=== PATIENT | female | born 1995 | race American Indian/Alaskan Native ===

== ENCOUNTER 2016-09-02 02:30 | Inpatient (IN) | payer OTHER, MEDICAID ==
[2016-09-02] MEDS ORDERED: Lidocaine 1% 30 ML SDV INJECT PRN (03:12)
[2016-09-02] MEDS ORDERED: Sodium Chloride 0.9% 10 ML Syringe FLUSH PRN ×2 (03:12→12:52)
[2016-09-02] MEDS ORDERED: Acetaminophen 325 MG Tab PO PRN ×2 (03:12→12:52)
[2016-09-02] MEDS ORDERED: Lactated Ringers 500 ML IV ONE (03:12)
[2016-09-02] MEDS ORDERED: Ondansetron 4 MG/2 ML SDV IV PRN (03:12)
[2016-09-02] MEDS ORDERED: Methylergonovine 0.2 MG/1 ML Amp IM PRN (03:12)
[2016-09-02] MEDS ORDERED: Penicillin G Potassium 5 MILLUNITS in Sodium Chloride 0.9% 100 ML IV ONE (03:12)
[2016-09-02] MEDS ORDERED: Misoprostol 400 MCG (4 X 100 MCG TAB) RECTAL PRN ×2 (03:12→12:52)
[2016-09-02] MEDS ORDERED: Carboprost Tromethamine 250 MCG/1 ML Amp IM PRN ×2 (03:12→12:52)
[2016-09-02] MEDS ORDERED: Nalbuphine 10 MG/1 ML Vial IM PRN (03:12)
[2016-09-02] MEDS ORDERED: Oxytocin/Normal Saline 30 UNIT/500 ML BAG IV SCH (03:15)
[2016-09-02] MEDS: Lactated Ringers 1,000 ML IV SCH ×2 (03:41→07:48)
[2016-09-02] MEDS: Penicillin G Potassium 3 MILLUNITS in Sodium Chloride 0.9% 100 ML IV SCH ×3 (07:49→16:42)
[2016-09-02] MEDS: fentaNYL 100 MCG/2 ML SDV IVPUSH PRN ×2 (09:47→10:59)
--- NOTE | 2016-09-02 10:19 | HP ---
CHIEF COMPLAINT: Increased force and frequency of contractions HISTORY OF PRESENT ILLNESS: A 21-year-old, 1, para 0 with a working due date of 09/09/2016 set by last menstrual period and confirmed with 9-week ultrasound, presents at 39 and 0/7th weeks gestation in stage I active labor. Reports contractions started about 11:00 p.m., last night and progressively got stronger and closer together, so, she came into the hospital. On admission, she was noted to be 4 cm dilated, and admitted for labor. She had spontaneous rupture of membranes at 04:12 a.m., with light meconium-stained fluid. movement has been reported to be good. She denies any symptoms of preeclampsia. Denies any other new problems or concerns since her last care visit. She prefers to try to manage labor without any pain medications and wants to be up and moving as able. OBSTETRICAL HISTORY: Last menstrual period 12/04/2015, giving a working due date of 09/09/2016. This is a planned and she was tracking her periods. Menarche at age 11 with menses every 30 days and 3 or 4 days of flow. She had a 7-kpuj-4-day quick look ultrasound in the office and also a 19-week-5- day anatomy screen showing the baby to be head down, posterior placenta, and gender male. Her blood type is O positive. She is antibody screen negative. Rubella negative. RPR nonreactive. Urine culture was negative at 2 days of growth. Hepatitis B negative. HIV negative. Gonorrhea and chlamydia negative. TSH normal at 1.37. Hepatitis C negative. Wet prep was positive for fungal elements, and she was treated with nmvj-zwy-rxwmnys vaginal yeast cream. Glucose tolerance test normal of 116. Group B strep is positive. She had a urinary tract infection in the first trimester, treated with 4 days of Keflex, found to be E. coli resistant to most of the antibiotics on culture, and then later on, she had a second urinary tract infection, however, the culture was negative and the antibiotic was discontinued. Plan was to consult Infectious Disease if she continued to have any bladder infections to decide on appropriate prophylaxis, however that did not become necessary. PAST MEDICAL HISTORY: Depression with ADHD and ODD. Denies any history however being diagnosed with depression. History of ear piercing's. No IV drug use, or blood transfusions. History of chickenpox as a child. History of lower extremity pain. 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 Menarche at age 11. Sebaceous cyst behind left ear. Tattoo. Recurrent urinary tract infections and follows with Urology and previous common warts. PAST SURGICAL HISTORY: [place] teeth extraction. FAMILY HISTORY: Mother is healthy without known diseases. Father is unknown to the patient, and his family is also unknown to the patient. She has 2 sisters and 1 brother all in good health. She has a cousin with diabetes on the mother's side of the family. She has other family members with cancer on both sides of the family reported to be alcohol and tobacco related. Paternal grandparents are unknown. Maternal grandmother has diabetes. Maternal grandfather has cancer of uncertain primary. Maternal uncle has fathered a set of twins. No family history of any alcohol syndrome or unpreventable defects. No cystic fibrosis, seizures, or bleeding problems, however, she does report her mother had hemorrhage with her last of 6 deliveries, but did not know why. No clotting disorders or anesthesia problems. SOCIAL HISTORY: The patient is and is in a long-term relationship. She works in [employer]. She has never smoked. She has not had any alcohol exposure during this . She in November of 2015. is Emeterio Treviño and he works in construction and is reportedly healthy. His parents are reportedly healthy and he has aunts who are twins. They have 2 dogs and 2 cats. MEDICATIONS: vitamin 1 daily. REVIEW OF SYSTEMS: No headaches, blurry vision, chest pain, shortness of breath. Increased abnormal swelling. No vaginal bleeding or leakage of fluid prior to presentation to the hospital. movement has been good. PHYSICAL EXAMINATION: General: This is a healthy, well-appearing 21-year-old female, who appears her stated age. More comfortable than expected for being in active labor. Vital Signs: Temperature is 98.0, pulse is 84, blood pressure is 135/74, O2 saturations 97% on room air. HEENT: Unremarkable. Neck: Supple without adenopathy. Heart: Regular without murmur. Lungs: Clear to auscultation bilaterally. Abdomen: Soft, nontender. Gravid uterus with appropriate fundal height. heart tones tracing at 135 beats per minute at baseline. Moderate hrio-os-pwiq variability. Accelerations noted. [place] showing contractions every 4 minutes with some movement artifact. Cervix is 5+ cm dilated, 100% effaced, 0 station. Extremities: Trace edema. No erythema or tenderness noted. LABORATORY DATA: Admission hemoglobin of 12.5, platelets 270. ASSESSMENT: 1. A 39-0/7th weeks intrauterine by last menstrual. 2. 1, para 0. 3. Rubella nonimmune. 4. Group B strep positive. 5. Blood type O positive. 6. History of urinary tract infections in the first trimester. PLAN: Continue expectant labor management at this time if patient is tolerating things well. If her contractions continue to seem a little bit more spaced out, we may need to initiate some Pitocin. However, we will give her a little bit of time for her body to naturally progress in labor. We will continue with antibiotic prophylaxis with penicillin and limit vaginal exams as best as we can. [facility] /[id number] CHRIS
[2016-09-02] MEDS ORDERED: Zolpidem 5 MG Tab PO PRN (12:52)
[2016-09-02] MEDS ORDERED: Simethicone 80 MG Tab.Chew PO PRN (12:52)
[2016-09-02] MEDS ORDERED: Benzocaine/Menthol 20%-0.5% Spray 56 GM Canister TOP PRN (12:52)
[2016-09-02] MEDS ORDERED: Oxytocin 10 Units/1 ML SDV IM PRN (12:52)
[2016-09-02] MEDS ORDERED: Measles, Mumps & Rubella Vaccine 0.5 ML SDV SUBCUT ONE (12:52)
[2016-09-02] MEDS: Ibuprofen 800 MG Tab PO PRN (16:35)
[2016-09-02] MEDS: Docusate Sodium 100 MG Cap PO PRN (20:52)
--- NOTE | 2016-09-03 02:14 | DEL ---
DATE: 09/02/2016 PREPROCEDURE DIAGNOSES: 1. A 39-0/7 weeks' intrauterine . 2. 1, para 0. 3. Blood type O positive. 4. Rubella nonimmune. 5. Group B Streptococcus positive. 6. History of urinary tract infections in the first trimester. 7. Lightly stained meconium fluid. POSTPROCEDURE DIAGNOSES: 1. A 39-0/7 weeks' intrauterine . 2. 1, para 1. 3. Blood type O positive. 4. Rubella nonimmune. 5. Group B Streptococcus positive. 6. History of urinary tract infections in the first trimester. 7. Lightly stained meconium fluid. 8. Status post spontaneous vaginal delivery with first-degree laceration repair. BRIEF HISTORY: A 21-year-old female, presented to the hospital in stage I labor, which progressed nicely and she spontaneously ruptured about 10 hours prior to delivery with meconium fluid noted. See admission history and physical for full details. No specific problems. PROCEDURE IN DETAIL: In the dorsal lithotomy position, delivered a viable male over intact perineum after pushing for approximately an hour. 's mouth and nose were bulb suctioned and baby was dried and stimulated and placed on mother's abdomen. Three-vessel umbilical cord was doubly clamped and then cut. Cord blood sample was then obtained. Placenta was then delivered by gentle cord traction and concomitant uterine massage after approximately 5 minutes. She did also have some brisk bleeding after the placenta was delivered, which was addressed with bimanual massage and increasing the rate of the Pitocin. Once that was controlled, Pitocin rate was decreased. A first- degree laceration was evaluated and although not bleeding, the edges were poorly approximated, so 2 simple interrupted sutures with 3-0 Vicryl were placed under 1% lidocaine without epinephrine with good skin reapproximation noted. The patient tolerated procedure well. ESTIMATED BLOOD LOSS: 300 mL. COMPLICATIONS: None. DISPOSITION: Mother and baby are in the room at this time and doing well. [facility] /[id number]
[2016-09-03] MEDS: Prenatal Multivitamin with Calcium/Folic Acid/Iron Tab PO SCH (09:36)
[2016-09-03] MEDS: Ibuprofen 800 MG Tab PO PRN ×2 (09:36→21:46)
[2016-09-03] MEDS: Docusate Sodium 100 MG Cap PO PRN (09:37)
--- NOTE | 2016-09-03 16:25 | PN ---
DATE: 09/03/2016 day #1. SUBJECTIVE: A 21-year-old, 1, now para 1, status post spontaneous vaginal delivery. Reports that she is doing well. Reports the bleeding is minimal. No foul-smelling, drainage, or discharge. No chest pain or shortness of breath. seems to be going well. Denies any other acute concerns or complaints. No symptoms of preeclampsia. Looking forward to discharge tomorrow. OBJECTIVE: Vital Signs: Temperature is 98.2, pulse of 71, blood pressure 90/53, respiratory rate of 16, O2 saturations 100% on room air. Heart: Regular without obvious murmur. Lungs: Clear to auscultation bilaterally. Abdomen: Soft. Uterus is firm and below the umbilicus. She does have some mild bloating noted. Extremities: Trace edema. No erythema or tenderness noted. LABORATORY DATA: Admission hemoglobin of 12.5, today's hemoglobin is 11.8, platelets are stable. ASSESSMENT: 1. 1, now para 1, status post uncomplicated vaginal delivery at 39 weeks' gestation. 2. Blood type O positive. 3. Rubella nonimmune and she will receive her MMR vaccine. 4. Group B strep positive, was treated during labor. 5. History of urinary tract infections recurrent, currently asymptomatic. PLAN: Continue routine post vaginal delivery cares. Anticipating discharge home tomorrow. Her questions have been answered. [facility] /[id number]
[2016-09-04] MEDS: Prenatal Multivitamin with Calcium/Folic Acid/Iron Tab PO SCH (09:00)
[2016-09-04 09:35] VITALS: BP 106/54
--- NOTE | 2016-10-16 06:59 | DISCH ---
ADMITTING DIAGNOSES: 1. A 39-0/7th weeks' gestation by last menstrual period. 2. 1, para 0. 3. Blood type O positive. 4. Rubella immune. 5. Group B Streptococcus positive. 6. History of urinary tract infections in the first trimester. 7. Light stained meconium fluid. DISCHARGE DIAGNOSES: 1. A 39-0/7th weeks' gestation by last menstrual period. 2. 1, para 0. 3. Blood type O positive. 4. Rubella immune. 5. Group B Streptococcus positive. 6. History of urinary tract infections in the first trimester. 7. Light stained meconium fluid. 8. Status post spontaneous vaginal delivery with first-degree laceration repair. BRIEF HISTORY: A 21-year-old female, admitted to the hospital in stage I labor, which progressed nicely and spontaneously ruptured about 10 hours prior to delivery with meconium fluid noted. See admission history and physical for full details. Labor was without complications. Delivery was a spontaneous vaginal delivery without complications. Baby is a term male with scores of 8 and 9, weight 3325 g. She had about 14 hours of stage I, and 1 hour of pushing, with only 5 minutes for delivery of the placenta. Bleeding was well controlled. HOSPITAL COURSE: Hospital course is good. She has been ambulating, tolerating regular diet, meeting discharge criteria. Voiding and stooling without complications. Denies any symptoms of severe anemia or preeclampsia, her baby and that is going well. LABORATORY DATA: Admission hemoglobin was 12.5, discharge hemoglobin is only down to 11.8. DISCHARGE CONDITION: Good. PHYSICAL EXAMINATION: Vital Signs: Temperature is 97.9, pulse of 74, blood pressure 114/54, respiratory rate of 16, and O2 saturations of 97% on room air. Heart: Regular without obvious murmur. Lungs: Clear bilaterally. Abdomen: Soft without masses and uterus is below the umbilicus. Extremities: Trace edema. No erythema or tenderness noted. DISPOSITION: Home with family. DISCHARGE MEDICATIONS: OTC ibuprofen and Tylenol as needed for pain. Recommended: 1. Iron 325 mg twice daily. 2. Colace 100 mg twice daily. 3. vitamin once daily. FOLLOWUP: Needs to be seen in the clinic in 6 weeks for routine exam. DISCHARGE INSTRUCTIONS: Routine post-vaginal delivery instructions provided including returning if she has any increased vaginal drainage or discharge that is of concern, any fever, increased pelvic pain, or other concerns arise. Her questions were answered. [facility] /[id number]
== END 2016-09-04 10:55 | disposition home or self-care (01) | DRG 775 ==
LOC: DL.OBCHECK 02:30 → DL.OB 03:05 → UNDOADMOB 03:05 → DL.OB 03:12 → OBSVTOIN 13:08 → DL.OB 13:08
PROVIDERS: ADMIT Family Medicine; ATTEND Family Medicine
PROC: 10E0XZZ Delivery of Products of Conception, External Approach (ICD-10-PCS; principal; 2016-09-02)
PROC: 0HQ9XZZ Repair Perineum Skin, External Approach (ICD-10-PCS; principal; 2016-09-02)
DX: O77.0 Labor and delivery complicated by meconium in amniotic fluid (principal); O23.91 Unspecified genitourinary tract infection in pregnancy, first trimester; O99.824 Streptococcus B carrier state complicating childbirth; O70.0 First degree perineal laceration during delivery; Z3A.39 39 weeks gestation of pregnancy; Z37.0 Single live birth; B96.20 Unspecified Escherichia coli [E. coli] as the cause of diseases classified elsewhere; O99.820 Streptococcus B carrier state complicating pregnancy; Z16.30 Resistance to unspecified antimicrobial drugs
CPT/HCPCS: 36415; 59025; 85027; 90707; A9270-GY; J2540; J2590; J3010; J7050; J7120

== ENCOUNTER 2017-10-06 04:20 | Inpatient (IN) | payer BC ==
[2017-10-06] MEDS ORDERED: Oxytocin 10 Units/1 ML SDV IM PRN (05:32)
[2017-10-06] MEDS ORDERED: Benzocaine/Menthol 20%-0.5% Spray 56 GM Canister TOP PRN (05:32)
[2017-10-06] MEDS ORDERED: Sodium Chloride 0.9% 10 ML Syringe FLUSH PRN (05:32)
[2017-10-06] MEDS ORDERED: Simethicone 80 MG Tab.Chew PO PRN (05:32)
[2017-10-06] MEDS ORDERED: Famotidine 20 MG Tab PO PRN (05:32)
[2017-10-06] MEDS ORDERED: Misoprostol 400 MCG (4 X 100 MCG TAB) RECTAL PRN (05:32)
[2017-10-06] MEDS ORDERED: Tranexamic Acid 1,000 MG in Sodium Chloride 0.9% 100 ML IV PRN (05:32)
[2017-10-06] MEDS ORDERED: Acetaminophen 325 MG Tab PO PRN (05:32)
[2017-10-06] MEDS ORDERED: Docusate Sodium 100 MG Cap PO PRN (05:32)
[2017-10-06] MEDS ORDERED: Ibuprofen 800 MG Tab PO PRN (05:32)
[2017-10-06] MEDS ORDERED: Carboprost Tromethamine 250 MCG/1 ML Amp IM PRN (05:32)
--- NOTE | 2017-10-06 06:31 | DEL ---
DATE: 10/06/2017 PREPROCEDURE DIAGNOSES: 1. A 34 and 6/7 weeks' gestation based on 8-week ultrasound, 2, para 1- 0-0-1. 2. Discharged from [facility] yesterday for labor, 2 doses of betamethasone, ampicillin, and diflucan given. 3. Blood type O positive. Rubella immune. Group B streptococcus pending POSTPROCEDURE DIAGNOSES: 1. A 34 and 6/7 weeks' gestation based on 8-week ultrasound, 2, now para 1-1-0-2. 2. deliver, received Betamethasone recently 3. Blood type O positive. Rubella immune. Group B streptococcus pending 4. Status post normal spontaneous vaginal delivery with anterior labial abrasions, no lacerations. No repair indicated. PERFORMED BY: Baylee Fry MS3 under the direct supervision and with the assistance of Dr. Marlon Chris. BRIEF HISTORY: A 22-year-old female with the above-listed diagnoses, presented for labor. Contractions when she left [place] were approximately 10 minutes apart and had been less severe per her report. There was no cervical change. At home, contractions began to become more intense and closer together, starting around midnight.. She came into the hospital with contractions every 4 minutes and report of bloody discharge. She was found on cervical exam to be 8 cm dilated with bag of water intact, small clot in vaginal canal. Patient began to push when she was 10 cm dilated, 100% effaced. Bag of srinivasan was intact and reached level of introitus, SROM at introitus, followed by delivery as detailed as below. Dr. Morocho was present for assistance as well. PROCEDURE IN DETAIL: With the patient in dorsal lithotomy position, she delivered a viable male infant over an intact perineum. Infant was dried and stimulated. Father of baby cut the 3 vessel umbilical cord. Cord blood sample obtained. Mouth and nose were bulb suctioned. Infant was brought to warmer. Placenta was delivered via gentle cord traction and concomitant uterine massage, inspected, and found to be intact. Labia and vagina were inspected, anterior abrasions that did not require suturing. Posterior vaginal wall with superficial abrasions, not requiring repair. Bleeding was improved after delivery with fundal massage and IV Pitocin. The patient tolerated the procedure well. ESTIMATED BLOOD LOSS: 300 mL. COMPLICATIONS: None. FINDINGS: Viable male infant. scores of 8 and 9. weight 2400 g, 5 pounds 4 ounces. DISPOSITION: Mother to stay in room for approximately 6 hours to re-evaluate her ability to travel to [place]. Infant to be sent to [place] for NICU due to respiratory distress of prematurity at less than 35 weeks' gestation. [facility] /[id number] Patient seen and procedure performed with my assistance. Agree with note as scribed on my behalf by Baylee Fry, MS3. -[facility] 10/06/175. CHRIS
--- NOTE | 2017-10-06 07:10 | HP ---
CHIEF COMPLAINT: Increasing contractions in frequency and severity HISTORY OF PRESENT ILLNESS: This is a 22-year-old 2, para 1-0-0-1, currently at 34 weeks 6 days' gestation based on an 8-week ultrasound, presents to Labor and Delivery reporting contractions that become more regular and more severe since being discharged from [facility]. She was admitted to [facility] at [place] 10/03/17 for labor contractions. She received 2 doses of betamethasone, ampicillin, and one course of Diflucan. Discharged yesterday with contractions spaced out to every 10 minutes per her report. Discharge summary from that visit is pending. The contractions started to become closer together at approximately 8:00 p.m. yesterday, every 8 minutes apart. Throughout the night she was woken up by contractions, every 4 minutes apart around midnight. Presented to Labor and Delivery at approximately 4:20 a.m. and was found to be dilated to 8cm with 1 blood clot in the vaginal vault. Has no leakage of fluid. She had no symptoms of preeclampsia. movement has been good overall. HISTORY: Patient has consistent care with Dr. Ana Chris starting at 8 weeks' gestation. RAS of 11/11/17 by 8 week ultrasound. A 20-week ultrasound showed normal male anatomy with anterior placenta. Baby was in lesley breech position at 20 weeks, resolved at 34 weeks. Mother's blood type O positive, antibody screen negative, rubella immune, syphilis nonreactive, HIV nonreactive. Wet prep negative for Trichomonas, clue cells, fungus, and yeast on 04/01/2017. GBS status pending. Mother was still her first child at the time of conception. Tdap was given on 08/19/2017. First of term male at 39 weeks' gestation on 09/02/2016. weight 3325 g, normal spontaneous vaginal delivery with first-degree laceration. PAST MEDICAL HISTORY: Depression reported in the chart as a teen, she denies this was an accurate diagnosis and has not had trouble with it since. ODD and ADHD. Recurrent UTI. PAST SURGICAL HISTORY: [place] teeth extractions. FAMILY HISTORY: Parents are both living. Mother with no known disease. Father with no known disease. Maternal grandfather , possibly related to alcohol abuse. Maternal grandmother with diabetes. Paternal grandparents are both living. No known medical disease in either. Family history is negative for defects, clotting disorders, seizures, thyroid disorders, or bleeding problems. SOCIAL HISTORY: The patient is to her , Emeterio Treviño. He works in construction. She works at [employer], and they live in [place] with their [id number] son. She does not smoke tobacco. There is not secondhand smoke in the home. OBJECTIVE: Vital Signs: Blood pressure 144/74, pulse of 100, and temperature of 97.7, immediately prior to delivery. HEENT: Normocephalic and atraumatic. Neck: Supple. No adenopathy. Heart: Regular without any murmur. S1 and S2. Regular rate and rhythm. Lungs: Clear to auscultation bilaterally. Abdomen: Gravid. Pelvic: [place] picking up contractions approximately every 2 minutes. heart rate baseline 150. Cervix; 10 cm dilated, 100% effaced. Bag of water intact. Bag of water ruptured when it reached the introitus, clear fluid. Skin: no lesions. Neurological: no focal deficits. LABORATORY DATA: Pending. ASSESSMENT: 1. A 34-week 6-day gestation based on 8-week ultrasound. 2. 2, para 1-0-0-1. 3. Blood type O positive, rubella immune, group B status unknown 4. labor. 5. Betamethasone x2, ampicillin, and Diflucan x1 in the past 48 hours PLAN: Dr. Mason called for delivery. Dr. Morocho called for assist. Per [facility] policy, the infant will be admitted to NICU for pre-term gestational age. NICU transport team en route. Mother's condition will be reevaluated 6 hours post-delivery for her to be discharged to go to [place]. [facility] /[id number] Patient seen and examined. Agree with note as scribed on my behalf by Baylee Fry , MS3. -[facility] 10/06/17 [id number]. CHRIS
[2017-10-06] MEDS ORDERED: Oxytocin/Normal Saline 30 UNIT/500 ML BAG IV SCH (07:30)
[2017-10-06] MEDS ORDERED: Lactated Ringers 1,000 ML IV SCH (07:30)
[2017-10-06] MEDS ORDERED: Prenatal Multivitamin with Calcium/Folic Acid/Iron Tab PO SCH (09:00)
[2017-10-06 10:27] VITALS: BP 114/66
== END 2017-10-06 12:40 | disposition home or self-care (01) | DRG 560 ==
LOC: DL.OBCHECK 04:20 → DL.OB 04:30 → OBSVTOIN 05:05
PROVIDERS: ADMIT Family Medicine; ATTEND Family Medicine
PROC: 10E0XZZ Delivery of Products of Conception, External Approach (ICD-10-PCS; principal; 2017-10-06)
DX: O60.14X0 Preterm labor third trimester with preterm delivery third trimester, not applicable or unspecified (principal); Z3A.34 34 weeks gestation of pregnancy; Z37.0 Single live birth
CPT/HCPCS: 36415; 59409; 85027; A9270-GY; J2590; J7120

== ENCOUNTER 2019-04-19 23:34 | Inpatient (IN) | payer BC ==
[2019-04-19] MEDS ORDERED: Lactated Ringers 1,000 ML IV SCH (23:45)
[2019-04-19] MEDS ORDERED: Oxytocin/Normal Saline 30 UNIT/500 ML BAG IV SCH (23:45)
[2019-04-19] MEDS ORDERED: Lactated Ringers 500 ML IV ONE (23:57)
[2019-04-19] MEDS ORDERED: Methylergonovine 0.2 MG/1 ML Amp IM PRN (23:57)
[2019-04-19] MEDS ORDERED: Lidocaine 1% 30 ML SDV INJECT PRN (23:57)
[2019-04-19] MEDS ORDERED: Sodium Chloride 0.9% 10 ML Syringe FLUSH PRN (23:57)
[2019-04-19] MEDS ORDERED: fentaNYL 100 MCG/2 ML SDV IVPUSH PRN (23:57)
[2019-04-19] MEDS ORDERED: Tranexamic Acid 1,000 MG in Sodium Chloride 0.9% 100 ML IV PRN (23:57)
[2019-04-19] MEDS ORDERED: Misoprostol 400 MCG (4 X 100 MCG TAB) RECTAL PRN (23:57)
[2019-04-19] MEDS ORDERED: Ondansetron 4 MG/2 ML SDV IV PRN (23:57)
[2019-04-19] MEDS ORDERED: Carboprost Tromethamine 250 MCG/1 ML Amp IM PRN (23:57)
[2019-04-19] MEDS ORDERED: Penicillin G Potassium 5 MILLUNITS in Sodium Chloride 0.9% 100 ML IV ONE (23:57)
[2019-04-20] MEDS ORDERED: Benzocaine/Menthol 20%-0.5% Spray 56 GM Canister TOP PRN (02:29)
[2019-04-20] MEDS ORDERED: Simethicone 80 MG Tab.Chew PO PRN (02:29)
[2019-04-20] MEDS: Ibuprofen 800 MG Tab PO PRN ×3 (03:31→20:19)
[2019-04-20] MEDS ORDERED: Penicillin G Potassium 3 MILLUNITS in Sodium Chloride 0.9% 100 ML IV SCH (04:00)
--- NOTE | 2019-04-20 05:09 | DEL ---
DATE: 04/20/2019 PREPROCEDURE DIAGNOSES: 1. 38-2/7 weeks' intrauterine based on 7-week ultrasound. 2. 3, para 1-1-0-2. 3. History of labor and delivery. 4. History of recurrent urinary tract infection in this . 5. History of yeast vaginitis. 6. Premature rupture of membranes. 7. Anemia of . 8. Group B Strep positive, treated in labor. Blood type O positive, rubella immune. 9. History of breech presentation in this , resolved. POSTPROCEDURE DIAGNOSES: 1. 38-2/7 weeks' intrauterine based on 7-week ultrasound. 2. 3, now para 2-1-0-3. 3. History of labor and delivery. 4. History of recurrent urinary tract infection in this . 5. History of yeast vaginitis. 6. Premature rupture of membranes. 7. Anemia of . 8. Group B Strep positive, treated in labor. Blood type O positive, rubella immune. 9. History of breech presentation in this , resolved. 10.Status post uncomplicated vaginal delivery. BRIEF HISTORY: A 23-year-old female with the above-listed diagnoses, presented to the hospital about 1 hour after spontaneous rupture of membranes at home. She was not in active labor and initially monitored, and when labor did not progress, Pitocin was initiated to get her into labor. She was also already receiving her penicillin for group B strep prophylaxis. She actually went fairly quickly in less than 4 hours from 3.5 cm dilated to complete and had an uncomplicated vaginal delivery as below pushing through only 2 contractions. DETAILS: With the patient in dorsal lithotomy position, she delivered a viable female over intact perineum in the OA position. Nuchal cord was noted, but tight and baby coming quickly, so somersault maneuver was performed and then baby entangled from her cord. She had a strong vigorous cry, and she was dried and stimulated, bulb suctioned briefly and then placed up on mother's abdomen. After a delay, 3-vessel umbilical cord was doubly clamped and then cut, and cord blood sample obtained. Placenta then delivered by gentle cord traction and concomitant uterine massage in Schultze presentation. Labia was inspected and there was a very superficial perineal tear that did not require repair. The patient tolerated the procedure well. There was some fairly brisk bleeding right before the placenta delivered and the nurse noticed some trickle of blood persistent after delivery, but that was well controlled with just a little bit of fundal massage. COMPLICATIONS: None. ESTIMATED BLOOD LOSS: 400 mL. DISPOSITION: Mother and baby to stay in the room together and start . [facility] /[id number] MTDEstella
[2019-04-20] MEDS: Prenatal Multivitamin with Calcium/Folic Acid/Iron Tab PO SCH (08:43)
[2019-04-20] MEDS: Acetaminophen 325 MG Tab PO PRN ×3 (08:43→19:12)
[2019-04-20] MEDS: Ferrous Sulfate 325 MG Tab PO SCH (08:43)
[2019-04-20] MEDS: Docusate Sodium 100 MG Cap PO PRN ×2 (08:43→19:12)
[2019-04-21] MEDS: Ibuprofen 800 MG Tab PO PRN ×2 (06:05→16:50)
[2019-04-21] MEDS: Ferrous Sulfate 325 MG Tab PO SCH (08:56)
[2019-04-21] MEDS: Prenatal Multivitamin with Calcium/Folic Acid/Iron Tab PO SCH (08:56)
[2019-04-21] MEDS: Docusate Sodium 100 MG Cap PO PRN (08:56)
[2019-04-21] MEDS: Acetaminophen 325 MG Tab PO PRN (08:58)
--- NOTE | 2019-04-21 10:48 | PN ---
DATE: 04/21/2019 SUBJECTIVE: day #1. The patient is doing well, ambulating, tolerating regular diet. Bleeding has been normal. No chest pain. No shortness of breath. No fever. No foul-smelling drainage or discharge. The patient is breast feeding, and although there were some difficulties last night, baby is doing better today. OBJECTIVE: General: Pleasant, well-appearing patient. Vital Signs: Temperature is 98.2, pulse 75, blood pressure 118/58, respiratory rate of 18. Heart: Regular without murmur. Lungs: Clear to auscultation bilaterally. Abdomen: Soft and nontender. Positive bowel sounds and fundus firm below the umbilicus. Extremities: Trace edema. No erythema or tenderness noted. LABORATORY DATA: Hemoglobin today down to 10.5, platelets 265. DIAGNOSES: 1. Status post vaginal delivery day #1. 2. 3, now para 2-1-0-3. 3. Anemia of and acute blood loss. 4. Group B Streptococcus positive. 5. History of recurrent urinary tract infections. PLAN: Continue routine postvaginal delivery cares. Anticipate discharge home tomorrow as we are holding the baby for at least a full 48 hours because of inadequate treatment of the group B strep. Mother had received less than 4 hours of antibiotics because of how fast her labor was, and she understands and her questions have been answered. [facility] /[id number]
--- NOTE | 2019-04-21 11:37 | HP ---
DATE OF ADMISSION: 04/19/19 CHIEF COMPLAINT: Leakage of fluid. HISTORY OF PRESENT ILLNESS: The patient is a 23-year-old, 3, para 1-1-0- 2, currently at 38-1/7 weeks' gestation based on 7-week ultrasound. She reports having contractions off and on mostly this morning that petered out during the day, and then tonight at 10:45 p.m., she felt a pop and had a large gush of fluid at home, so she came into the hospital for evaluation. Was confirmed to have leakage of clear fluid and admitted to the hospital. After 2 hours of not being in labor, Pitocin was initiated to help start the labor process, and she was also given penicillin for prophylaxis for group B strep. She denied any vaginal bleeding. movement has been good. No chest pain or shortness of breath. No symptoms of preeclampsia. No fever, chills or other concerns at this time. PAST MEDICAL HISTORY: Depression as well as ADHD and oppositional defiant disorder. The patient actually denies any recollection of ever being diagnosed depressed. 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 History of labor and delivery without known cause. Menarche at age 11, cycles every 30 days with flow of 3 to 4 days. History of sebaceous cyst, left posterior ear. She has some tattoos. She has a history of recurrent urinary tract infections and had negative renal ultrasound in 2010. OBSTETRICAL HISTORY: 1. 09/02/2016, 39 weeks' gestation, 14 hours of labor, 1 hour of pushing, male infant, 3325 g, spontaneous vaginal delivery with first-degree laceration. 2. 10/06/2017, 34 weeks 6 days' gestation, 2400 g male infant, spontaneous vaginal delivery. Baby did well, but was transferred to [facility] due to being less than 35 weeks' gestation. CURRENT LABS: Blood type is O positive. She is rubella immune and group B strep positive. Syphilis negative. Hepatitis B negative. HIV negative. Glucose tolerance test was 110. Last hemoglobin 12.0 on 01/31/2019. Platelets 299. Gonorrhea and chlamydia negative. TSH normal. Yeast infection on wet prep was treated. PAST SURGICAL HISTORY: [place] teeth. FAMILY HISTORY: Mother alive and well. Father is unknown to the patient. Two sisters alive and well. Brother alive and well. There was noted diabetes on the maternal side of the family. There is cancer on both sides of the family, that she believes are alcohol and tobacco related. Paternal grandfather is unknown. Maternal grandmother has diabetes. Maternal grandfather had cancer of uncertain primary; he also had a history of alcohol abuse. Paternal grandmother is unknown to the patient. Maternal uncle had some twins. There is no family history of any defects, cystic fibrosis, seizures, clotting disorders, or anesthesia problems. No bleeding problems; however, reports that her mother had hemorrhage with the last 6 deliveries and it was unknown why. SOCIAL HISTORY: The patient was in November of 2015. She is currently working at the [employer] [place]. Her , Emeterio, works in construction, and he is healthy. Her 2 sons, Jorge and Sara are doing well. Emeterio's father has 2 paternal aunts with diabetes. Otherwise, no health concerns. They now only have 1 cat at home. There are no smokers in the home. MEDICATIONS: 1. Cranberry tablets 1 twice daily. 2. Tylenol as needed for pain. 3. vitamin 1 daily. 4. Keflex 250 mg nightly. ALLERGIES: No known drug allergies. REVIEW OF SYSTEMS: As per the history of present illness. Otherwise, 10-system review is negative. PHYSICAL EXAMINATION: Vital Signs: Temperature is 97.4, pulse 70, blood pressure 112/60, respiratory rate of 16. HEENT: Unremarkable. Neck: Supple without adenopathy. Heart: Regular without murmur. Lungs: Clear to auscultation bilaterally. Abdomen: Soft and nontender. Gravid uterus. Vertex presentation. Initial strip shows baseline heart rate 130 beats per minute with moderate beat-to- beat variability and reactive. The NST shows occasional contractions that she is not really feeling. Cervix: Exam per the nurse, 3.5 cm, 50%. Extremities: No edema, erythema, or tenderness noted. LABORATORY DATA: Hemoglobin is 11.4, platelets 315. ASSESSMENT: 1. 38-1/7 weeks' intrauterine based on 7-week ultrasound. 2. 3, para 1-1-0-2. 3. History of labor and delivery. 4. History of recurrent urinary tract infections in this . 5. Anemia of . 6. History of breech, resolved. 7. Group B strep positive, rubella immune, blood type O positive. 8. Premature rupture of membranes. PLAN: The patient was admitted to the hospital and penicillin prophylaxis initiated. When she was still not showing any labor at 2 hours post rupture, Pitocin was started and only took a small amount to get her into labor. Expectant management for vaginal delivery. [facility] /[id number]
[2019-04-22] MEDS: Acetaminophen 325 MG Tab PO PRN ×2 (00:35→07:55)
[2019-04-22] MEDS: Ibuprofen 800 MG Tab PO PRN (05:44)
[2019-04-22] MEDS: Ferrous Sulfate 325 MG Tab PO SCH (07:55)
[2019-04-22] MEDS: Prenatal Multivitamin with Calcium/Folic Acid/Iron Tab PO SCH (07:55)
[2019-04-22] MEDS: Docusate Sodium 100 MG Cap PO PRN (07:55)
--- NOTE | 2019-04-22 08:17 | DISCH ---
ADMITTING DIAGNOSES: 1. 38 and 1/7 weeks intrauterine by a 7-week ultrasound. 2. 3, para 1-1-0-2. 3. History of labor and delivery. 4. History of recurrent urinary tract infection. 5. Anemia of . 6. Breech presentation, resolved. 7. History of yeast infection. 8. Group B Strep positive. 9. Blood type O positive and rubella immune. 10.Premature rupture of membranes. DISCHARGE DIAGNOSES: 1. Delivered at 38 and 2/7 weeks gestation. 2. 3, now para 2-1-0-3. 3. History of labor and delivery. 4. History of recurrent urinary tract infection. 5. Anemia of . 6. Breech presentation, resolved. 7. History of yeast infection. 8. Group B Strep positive, inadequately treated in labor. 9. Blood type O positive and rubella immune. 10.Anemia of acute blood loss. 11.Premature rupture of membranes. BRIEF HISTORY: A 23-year-old female, above-listed diagnoses, presented to the hospital with premature rupture of membranes and was started on Pitocin for augmentation. Penicillin was also provided for group B Strep prophylaxis, however, labor took less than 4 hours and she delivered after only 2 contractions with an uncomplicated spontaneous vaginal delivery. Baby did well. score of 8 and 9, weight 2915 g, 6 pounds 7 ounces. Mother and baby are being kept in the hospital for at least 48 hours because of the inadequate treatment of the group B Strep. HOSPITAL COURSE: Good. Since delivery, the patient is doing well, ambulating, tolerating regular diet. Bleeding has been well controlled. No fever, chills, chest pain, or shortness of breath. is going well at this time. Previously had difficulties with baby's stimulus. DISCHARGE CONDITION: Good. PHYSICAL EXAMINATION: Vital Signs: Temperature is 98.6, pulse 73, blood pressure 127/76, respiratory rate of 16, O2 saturations 100% on room air. Heart: Regular without murmur. Lungs: Clear to auscultation bilaterally. Abdomen: Soft, nontender. Fundus is firm and below the umbilicus. Extremities: No edema, erythema, or tenderness noted. LABORATORY DATA: Admission hemoglobin of 11.4, discharge 10.5, platelets 315 down to 265. MEDICATIONS: 1. Ibuprofen 800 mg every 8 hours as needed for pain. 2. Tylenol 350 mg every 6 hours as needed for pain. 3. Colace 100 mg twice daily as needed for constipation. 4. Iron 325 mg twice daily for her anemia. 5. vitamin continue 1 daily. FOLLOWUP: She will need a 6-week exam. I will also be able to check on her for any signs or symptoms of depression or other concerns at her child's 2-day and 2-week-old well visits. INSTRUCTIONS: Routine post vaginal delivery care for a mother were provided. Her questions were answered, and she will contact Labor and Delivery or the office if there are any concerns. [facility] /[id number]
[2019-04-22 08:46] VITALS: BP 138/78; PULSE 70
== END 2019-04-22 08:35 | disposition home or self-care (01) | DRG 560 ==
LOC: DL.OBCHECK 23:34 → DL.OB 23:57 → OBSVTOIN 04-20 02:56
PROVIDERS: ADMIT Family Medicine; ATTEND Family Medicine
PROC: 10E0XZZ Delivery of Products of Conception, External Approach (ICD-10-PCS; principal; 2019-04-20)
DX: O42.12 Full-term premature rupture of membranes, onset of labor more than 24 hours following rupture (principal); O99.824 Streptococcus B carrier state complicating childbirth; D62 Acute posthemorrhagic anemia; O99.03 Anemia complicating the puerperium; O69.81X0 Labor and delivery complicated by cord around neck, without compression, not applicable or unspecified; Z37.0 Single live birth; Z3A.38 38 weeks gestation of pregnancy
CPT/HCPCS: 36415; 59409; 83986; 85027; A9270-GY; J2540; J2590; J7050; J7120